=== PATIENT | male | born 1935 | race Caucasian/White ===

== ENCOUNTER → 2018-03-28 11:11 | Outpatient (CLI) | payer MEDICARE, OTHER, SELFPAY ==
[2016-11-03 09:34] VITALS: BMI 23.1
== END ==
PROVIDERS: Family Provider Family Medicine; PCP Family Medicine; Referring Provider Urology; Visit Provider Urology
DX: R97.20 Elevated prostate specific antigen [PSA] (principal)
CPT/HCPCS: 36415; 84153

== ENCOUNTER → 2020-04-19 16:26 | Outpatient (CLI) | payer MEDICARE, OTHER, SELFPAY ==
[2016-11-03 09:34] VITALS: BMI 23.1
== END ==
PROVIDERS: Referring Provider Nurse Practitioner Adult Health; Visit Provider Nurse Practitioner Adult Health
DX: R31.0 Gross hematuria (principal)
CPT/HCPCS: 87086

== ENCOUNTER 2020-04-30 09:03 | Inpatient (IN) | payer MEDICARE, OTHER, SELFPAY ==
--- NOTE | 2020-04-29 13:59 | PCM.HP.STD ---
Problem List (1) Gross hematuria Status: Acute History of Present Illness Date of Admission: 04/29/20 Chief Complaint: gross hematuria and bladder mass The patient is a 84 year old male came into the office with the onset of gross hematuria cystoscopy done demonstrated significant bleeding within the bladder and also bladder mass is to be admitted to the hospital for further management Past Medical History Allergies No Known Allergies Allergy (Verified 10/27/16 15:29) Home Medications: Ambulatory Orders Medication Instructions Recorded Finasteride [Proscar] 5 mg PO DAILY 10/27/16 Oxycodone HCl/Acetaminophen 1 - 2 tablet PO Q4H PRN PRN #20 11/03/16 [Percocet 5/325] tablet Surgical History: no surgical history Smoking Status: Never smoker Review of Systems Constitutional: Denies: Chills, Fever, Weight Change HEENT: Denies: Head Aches, Sinus Congestion, Sinus Drainage Cardiovascular: Denies: Chest Pain, Palpitations Respiratory: Denies: Cough, Shortness of breath at rest, Sputum production Gastrointestinal: Denies: Abdominal Pain, Nausea, Vomiting Genitourinary: Denies: Dysuria Musculoskeletal: Denies: Joint Pain, Joint Tenderness Skin: Denies: Rash, Wounds Neurological: Denies: Numbness, Tingling, Focal weakness Psychiatric: Denies: Anxiety, Depression, Homicidal Ideations, Suicidal Ideations Hematologic/ Lymphatic: Denies: Easy Bruising, Easy Bleeding VTE Information - Inpt Only VTE Present on Admission: No - Physical Exam General: Alert, Oriented x3, Cooperative HEENT: Atraumatic, PERRLA, EOMI, Normocephalic Neck: Supple, No JVD, Negative Carotid Bruits Lungs: Clear to auscultation, Normal air movement Cardiovascular: Regular rate, No murmurs Abdomen: Bowel Sounds Present, Soft, Non Tender Extremities: No edema, Capillary Refill Less than 3 Seconds Skin: No rashes, No breakdown Musculoskeletal: No Tenderness to Palpation of Joints or Extremities Neurological: Cranial nerves II-XII grossly intact Psych/Mental Status: Normal Affect, Appropriate Assessment/Plan All Active Problems Gross hematuria (Acute) Right inguinal hernia (Acute) plan to proceed with a transurethral resection of a large bladder tumor, possible TURP, and prostate biopsy.
--- NOTE | 2020-04-29 14:16 | PCS.PANDOC ---
PANDEMIC DOCUMENTATION INITIATED: Date: 04/29/2020 Time: 1410
[2020-04-29 14:19] VITALS: BMI 23.1
[2020-04-29 14:25] VITALS: BP 137/69; PULSE 98; RESP 16; TEMP 36.7; O2SAT 98
[2020-04-29 14:32] VITALS: BMI 23.1
[2020-04-29] MEDS: 0.9% Normal Saline 1,000 ML 75 ML IV (14:52)
--- NOTE | 2020-04-29 15:12 | EKG12_ITS ---
Test Reason : PRE OP Blood Pressure : / mmHG Vent. Rate : 086 BPM Atrial Rate : 086 BPM P-R Int : 214 ms QRS Dur : 098 ms QT Int : 348 ms P-R-T Axes : 080 079 056 degrees QTc Int : 416 ms Sinus rhythm with 1st degree A-V block with Premature atrial complexes Otherwise normal ECG Confirmed by ANDI OCONNELL, NEIDA ([id number]), editor managing director SANGEETA MALCOLM ([id number]) on 05/03/2020 9:56:27 AM Referred By: Elton Simpson Confirmed By:NEIDA ESCAMILLA MD
[2020-04-29] MEDS: Cefazolin 1 GM/50 ML BAG IV ×2 (16:07→21:30)
[2020-04-29 20:07] VITALS: BP 126/60; PULSE 95; RESP 16; TEMP 36.7; O2SAT 95
[2020-04-30] VITALS (13 sets, daily range): BP systolic 111–184; BP diastolic 50–94; PULSE 71–99; RESP 16–18; TEMP 36.1–36.6; O2SAT 96–100; BMI 23.1
--- NOTE | 2020-04-30 | BLB_PTH ---
PATIENT: RICHARD PEREZ LOC: MS3 U#:[id number] AGE/SX: 84/M ROOM: [facility] [place] RE04/30/[address]: Dr. Elton Simpson MD : 1935 BED: 1 DIS: 05/01/2020 SPEC #: [id number] RECD: 04/30/20 13:37 STATUS: DIANA REFernando #: [id number] LEONEL: 04/30/20 00:[address]: Elton Simpson DEPT: SURGICAL PATHOLOGY RECD BY: Rafat Ochoa ENTERED: 05/03/20 08:09 SP TYPE: TURB OTHR DR: Dr. Kaleb Ochoa MD Tissues: A - Urinary bladder, NOS B - Prostate, NOS C - PROSTATE BIOPSY Procedures: Surgery Specimen Level IV Comments: Sent 06/10/20 via [employer] to [employer] for PD-L1. Delayed in transit. Second block sent 06/30/20 and resulted 07/02/20. Original block finally arrived 07/02/20 and was canceled. HEADER OPERATION: TURP with [employer], TURBT, prostate biopsy PRE-OP DIAGNOSIS: Gross hematuria, malignant neoplasm of prostate; elevated PSA TISSUE SUBMITTED: A - Resection of mass from bladder, B - Prostate tissue, C - Prostate biopsy MICROSCOPIC DIAGNOSIS A. Urinary bladder mass, transurethral resection: Invasive high-grade urothelial carcinoma. See cancer checklist below. See comment. B. Prostate tissue, transurethral resection: Prostate tissue with benign nodular hyperplasia, glandular and stromal types. Fragments of urothelium and smooth muscle tissue with invasive poorly differentiated urothelial carcinoma. See comment. C. Prostate, needle core biopsy: Mild chronic inflammation. AM:alaina 05/04/2020 COMMENT A. BLADDER CANCER (TUR) SUMMARY Procedure: Transurethral resection of bladder (TURBT) Tumor site: Not specified Histologic type: Papillary urothelial carcinoma Histologic grade: WHO high grade (3/3) Tumor configuration: Non-papillary Muscularis propria invasion: Focally present Lymphvascular invasion: Not identified Tumor extension: Tumor extends into lamina propria and focally involving muscularis propria. Additional pathologic findings: Chronic inflammation. The above summary is in compliance with [employer] of [place] [employer] (CAP) Cancer Protocols Checklist and [place] Joint Committee on Cancer (AJCC), Staging Manual, 8th Ed. A & B. Immunohistochemistry ([id number]) supports the above diagnosis. This case was reviewed and diagnosis discussed with Dr. Yoon on 05/20/20 at 11:40 a.m. Case has been reviewed in consultation with Dr. Bey who concurs with the above diagnosis. IDC:SJ MICROSCOPIC DESCRIPTION Slides are reviewed. GROSS DESCRIPTION A - Received in fixative is one container labeled with the patient's name and designated resection of mass from bladder. The specimen consists of multiple irregular fragments of light hirsch soft tissue that in aggregate measure 5 x 3 x 0.3 cm. The specimen is totally submitted in two cassettes. B - Received is one container labeled with the patient's name and designated prostate tissue. The specimen consists of multiple irregular fragments of pink-hirsch, rubbery, soft tissue that in aggregate weigh 10.4 gm and measure in aggregate 6 x 6 x 2 cm. The entire specimen is submitted in ten cassettes. C - Received in fixative is one container labeled with the patient's name and designated prostate. The specimen consists of two elongated fragments of light hirsch-white soft tissue measuring 1 and 2 cm in length and 0.1 cm in diameter. The specimen is totally submitted in one cassette. / SJ:rg 05/03/20 TC:0 CPT: 02320 x3 ADDENDUM ADDENDUM ADDENDUM ADDENDUM ADDENDUM ADDENDUM ADDENDUM ADDENDUM ADDENDUM ADDENDUM 07/07/2020 09:46 ADDENDUM 07/07/2020 09:46 ADDENDUM 07/07/2020 09:46 ADDENDUM 07/07/2020 09:46 ADDENDUM 07/07/2020 09:46 PD-L1 (KEYTRUDA) IMMUNOHISTOCHEMICAL ANALYSIS FROM [employer] Block A1 RESULTS: Tumor proportion score: 10-15 (CPS>=10 / Expressed) Block A2 RESULTS: Tumor proportion score: 0 (CPS<10 / No PD-L1 Expression) Please see complete report in e-chart or EMR
--- NOTE | 2020-04-30 | IMM_PTH ---
PATIENT: RICHARD PEREZ LOC: MS3 U#:[id number] AGE/SX: 84/M ROOM: [facility] [place] RE04/30/[address]: Dr. Elton Simpson MD : 1935 BED: 1 DIS: 05/01/2020 SPEC #: [id number] RECD: 05/04/20 12:43 STATUS: DIANA REQ #: [id number] LEONEL: 04/30/20 00:[address]: Elton Simpson DEPT: IMMUNOHISTOCHEMISTRY RECD BY: Hannah Wilkerson ENTERED: 05/04/20 12:44 SP TYPE: IMMUNO OTHR DR: Dr. Kaleb Ochoa MD Tissues: A - Urinary bladder, NOS B - Prostate, NOS Procedures: CK20 (add) CK7 (add) CK8 (add) Pankeratin (initial) CD44 (add) PSAP (add) PHYSICIAN & INSTITUTION [place] [id number] SPECIMEN INFORMATION: Tissue Source: A - Resection of bladder mass, B - Prostate tissue Clinical Info: Gross hematuria, malignant neoplasm of prostate, elevated PSA Specimen Number: [id number] A2 & B8 CPT code: 72003 x2, 42486 x10 METHODOLOGY: Deparaffinized sections of prefer/formalin-fixed tissue or PAP/DQ stained slides are incubated with monoclonal/polyclonal antibodies/oligonucleotide probes. Localization is made via biotin free immunoperoxidase method. Appropriate controls are performed and reacted as expected. Results on target cell population are indicated in the following table: RESULTS: ANTIBODY / CLONE RESULT Block A2 AE1-3 (AE1/AE3/PCK26) positive CK7 (OV-TL12/30) positive CK8 (35drgxM78) positive CK20 (KS20.8) positive PSAP (PASE/4LJ) negative anti-CD44 (SP37) positive, focal Block B8 AE1-3 (AE1/AE3/PCK26) positive CK7 (OV-TL12/30) positive CK8 (71jxpwL15) positive CK20 (KS20.8) positive, focal, dim PSAP (PASE/4LJ) negative anti-CD44 (SP37) positive, focal These tests were developed and their performance characteristics determined by [facility]. They may not have been cleared or approved by the U.S. Food and Drug Administration. The FDA has determined that such clearance or approval is not necessary. The above immunohistochemical/dualISH markers are ordered and reviewed by the Pathologist. INTERPRETATION: A. Urinary bladder mass, transurethral resection: Consistent with urothelial carcinoma. B. Prostate tissue, transurethral resection: Consistent with urothelial carcinoma. AM:alaina 05/05/2020 Case has been reviewed in consultation with Dr. Bey who concurs with the above diagnosis. IDC:SJ
[2020-04-30] MEDS: Acetaminophen 325 MG Tablet PO (02:19)
[2020-04-30] MEDS: 0.9% Normal Saline 1,000 ML 75 ML IV ×2 (05:28→14:04)
[2020-04-30 05:57] LABS: Hematocrit 37.5 % (40-54); Hemoglobin 12.7 g/dL (13.0-16.5); Mean Corp Hgb Conc 33.9 g/dL (32-36); Mean Corpuscular Hgb 30.9 pg (27.0-32.0); Mean Corpuscular Volume 91.2 fL (80-94); Mean Platelet Vol. 9.8 fl (6.2-12.0); Platelet Count 253 K/mm3 (150-450); RBC Distribution Width CV 13.1 % (11.6-14.6); RBC Distribution Width SD 43.6 fl (35.1-43.9); Red Blood Count 4.11 M/mm3 (4.6-6.2); White Blood Count 6.4 K/mm3 (4.4-11.0)
[2020-04-30 06:22] LABS: Anion Gap 4 (5-15); BUN 14 mg/dL (7-18); BUN/Creat Ratio 15.2 RATIO (10-20); Chloride 107 mmol/L (98-107); Creatinine, Serum 0.92 mg/dL (0.70-1.30); EST Glomerular Filtration Rate 83 mL/min (>60); Est Glom Filt Rate - Afr Amer 100 mL/min (>60); Estimated Creatinine Clearance 58.86 ml/min; Glucose 105 mg/dL (74-106); Potassium 4.2 mmol/L (3.5-5.1); Sodium Level 139 mmol/L (136-145)
[2020-04-30 07:14] LABS: Hemoglobin A1c 6.1 % (3.8-5.6)
--- NOTE | 2020-04-30 12:07 | PCM.DC.URO ---
Discharge Diet: Light diet - advance as tolerated Discharge Activity: Return to Normal Activity, May not drive while taking narcotic pain medications. Call your doctor if your incision/area has: Sudden Increased Bleeding, Increased Pain/ Swelling, Increased Redness, Foul Smelling Discharge, Swelling at the incision site Call your doctor if you observe: Fever of 101 or Higher Suture Line Care: Avoid Pulling/Pushing, Avoid Pinching/Bending Catheter: Bryant to leg bag, Bryant to large bag Drain: [place] Allergies/Adverse Reactions: Allergies No Known Allergies Allergy (Verified 10/27/16 15:29) Medications to take at Discharge Ciprofloxacin [Cipro] 500 mg PO BID #14 tab 04/30/20 Hydrocodone/Acetaminophen [[place] 5-325 Tablet] 1 each PO Q6H PRN PRN 7 Days #10 tablet 04/30/20 The following prescriptions were given: Ciprofloxacin [Cipro] 500 mg PO BID #14 tab Transmission Status: Pending to [facility] Hydrocodone/Acetaminophen [[place] 5-325 Tablet] 1 each PO Q6H PRN PRN 7 Days #10 tablet PRN Reason: Pain 1-10 Or Fever Transmission Status: Sent to [facility] Primary Care Physician: Kaleb Ochoa MD [Primary Care Provider] - Test Results: Test results from this visit will be discussed in further detail at your follow-up appointment, if applicable. Please Follow Up With: Elton Simpson MD When: please call to make an appointment.
--- NOTE | 2020-04-30 12:08 | PCM.OPRPT ---
Problem List (1) Gross hematuria Status: Acute Report of Operation Date of Procedure: 04/30/20 Pre-Operative Diagnosis: Large bladder mass, BPH with obstruction, gross hematuria, history of prostate cancer Post-Operative Diagnosis: Same Surgery/Procedure Performed:: Multiple procedures. #1 transurethral section of the prostate. #2 transurethral section of large bladder tumor on the left lateral wall 5 cm. #3 transrectal biopsy the prostate Description of Surgical Findings:: In the preoperative setting I discussed with the patient how the surgery would be done with expect afterwards. We discussed how a prostate resection is done and we discussed the risk of the surgery including, bleeding, infection, retrograde ejaculation, changes with ejaculation or intercourse,. We discussed the possibility that the resection of the prostate may not alleviate his urinary symptoms. We discussed the small risk of developing scar tissue along the urethral channel and strictures. We also discussed the chance of the prostate could grow back and he may need further surgery or treatment in the future for prostate problems. Patient was taken back to the operating room, timeout procedure was performed, he was identified and marked and placed on the operating room table. He underwent general anesthesia. He was placed in dorsolithotomy position. Penis and testicles were prepped and draped in usual sterile fashion. I went into the bladder with a 30 degree lens and a cystoscope and identified the tumor the tumor was about 5-6 centimeters in size and occupying mostly the left lateral wall of the bladder. The right and left ureteral orifice were identified. The tumor was not involved in the ureteral orifices. I then placed the resectoscope and the bladder and resected the entire tumor down to the muscle on the left side. And then cauterized the resection base to obtained hemostasis. I then went into the bladder using the visual obturator with a resectoscope. Once inside the bladder identified the right and left ureteral orifice. I then identified the prostate and the anatomy of the prostate. I marked out the area of the sphincter and the verumontanum was identified. I then proceeded with the prostate resection first resected the median lobe. And then resected the right lobe of the prostate. Then to resect the left lobe of the prostate. I then resected the apical tissue of the prostate. Made sure that there was no injury to the sphincter or the verumontanum was still intact. At the end of the resection all the chips were Ellik out of the bladder. I then identified the left and right ureteral orifice and these were confirmed to be in good position and effluxing and not injured. The resectoscope was removed, a 22 Bulgarian catheter was placed into the bladder on continuous irrigation. Then finally I double gloved and used a guide through the glove and I performed a rectal exam and via the guide I did prostate biopsy transrectal and I obtained several specimens for the prostate again because of the history of prostate cancer to restage the patient. At the end of the procedure patient's anesthetic was reversed he was taken back to the PACU in good condition and he will probably need to go home with a catheter since it was a very large resection of the bladder tumor and a TURP. Drains: 22fr 3 way - Admit VTE Documentation VTE Present on Admission: No VTE Mechan Device Prophylaxis: SCD's
[2020-04-30] MEDS: Lactated Ringers 1,000 ML 100 ML IV (12:58)
--- NOTE | 2020-04-30 15:45 | CASEMGMT ---
RN CM EDGE BEADER CM to room to meet with patient for initial transition planning/care coordination assessment. RN JOON introduced self and role at [facility]. Pt voices understanding and consents to assessment at this time. Pt resting in bed in no distress at this time. DaughterViry, @ bedside. Pt is A/O at this time and answers all questions appropriately. Care providers, pharmacy, and demographics verified/updated at this time. PCP: Dr Kaleb Ochoa Specialists: Dr Griffin--news technical director @ [facility] Preferred Pharmacy: [facility] Retail Insurance: [employer] Prescription Benefit: None Living Will/HPOA: Has both LW and Healthcare POA, who is his , Promise. DaughterViry, is 1st alternative. LNOK: , Promise. 3 adult children Living Arrangements: Lives w/his in condo. No steps to enter. Independent. Often works @ a [employer] 8-10 hrs/day. Transportation: Pt states drives self and states no transportation concerns at this time. DaughterViry, will take him home @ d/c. DME: Denies using any DME and denies needs. HHC/SNF: No history of either. Denies need for HHC. Pt wishes to return home and states has no concerns with going home at time of discharge. Pt will most likely d/c home with F/C. He and dtr, Viry, state they feel pt will be able to manage F/C at d/c. They were made aware nursing would do teaching w/them prior to d/c. Viry, is a nurse, and lives out of state. She is able to stay with pt and assist as needed. Pt/Viry voice no further concerns/needs at this time. Advised them to ask for CM if any further questions/concerns/needs arise. Voices understanding. PLAN: Home w/family support and discharge plans in place. Lisbet GOFF RN, CM
[2020-04-30] MEDS: Docusate Sodium 100 MG Capsule PO (22:08)
[2020-05-01] MEDS: 0.9% Normal Saline 1,000 ML 75 ML IV (01:02)
[2020-05-01 02:29] VITALS: BP 101/54; PULSE 85; RESP 18; TEMP 36.9; O2SAT 99
[2020-05-01 02:33] VITALS: BMI 23.1
[2020-05-01 06:14] VITALS: BMI 23.1
[2020-05-01 06:46] LABS: Hematocrit 37.7 % (40-54); Hemoglobin 12.5 g/dL (13.0-16.5); Mean Corp Hgb Conc 33.2 g/dL (32-36); Mean Corpuscular Hgb 30.5 pg (27.0-32.0); Platelet Count 301 K/mm3 (150-450); RBC Distribution Width CV 13.3 % (11.6-14.6); RBC Distribution Width SD 44.8 fl (35.1-43.9); White Blood Count 12.4 K/mm3 (4.4-11.0)
[2020-05-01 07:08] LABS: Anion Gap 6 (5-15); BUN 15 mg/dL (7-18); BUN/Creat Ratio 15.2 RATIO (10-20); Calcium,Total 7.7 mg/dL (8.5-10.1); Chloride 105 mmol/L (98-107); Creatinine, Serum 0.99 mg/dL (0.70-1.30); EST Glomerular Filtration Rate 77 mL/min (>60); Est Glom Filt Rate - Afr Amer 93 mL/min (>60); Glucose 108 mg/dL (74-106); Potassium 3.8 mmol/L (3.5-5.1); Sodium Level 139 mmol/L (136-145)
[2020-05-01 08:29] VITALS: BP 141/79; PULSE 99; RESP 18; TEMP 36.8; O2SAT 99
[2020-05-01] MEDS: Docusate Sodium 100 MG Capsule PO (09:00)
[2020-05-01] MEDS: Pantoprazole Sodium 40 MG Tablet PO (09:00)
[2020-05-01 09:50] VITALS: BMI 23.1
--- NOTE | 2020-05-01 12:30 | PCM.DC.SUM ---
Discharge Date and Diagnosis - Problem List Patient Problems: Active and Suspected Problems Gross hematuria (Acute) Date of Admission: 04/29/20 Date of Discharge: 05/01/20 - Primary Discharge Diagnosis Acute Problems: Active Problems Gross hematuria (Acute) Hospital Course and Treatment Operations: TURP Summary of Care Provided: The patient is a 84 year old male with a history of low-grade prostate cancer presented with gross hematuria found to have a bladder mass underwent a resection of this bladder mass and also a TURP for obstruction there is a deep resection so he will need to go home with a catheter today he will follow-up in the office later this week to remove the catheter. He was given prescriptions for antibiotics and pain medicine for home. Patient Problems: Active and Suspected Problems Gross hematuria (Acute) - Physical Exam Vitals/I&O's: Vital Signs Temp Pulse Resp BP Pulse Ox 98.3 F 99 18 141/79 H 99 05/01/20 08:29 05/01/20 08:29 05/01/20 08:29 05/01/20 08:29 05/01/20 08:29 Oxygen Delivery Method Room Air Weight: 68.81 kg Body Mass Index (BMI) 23.1 Intake and Output for Last 24 Hours 04/29/20 04/30/20 05/01/20 23:59 23:59 23:59 Intake Total 597.5 / 947.5 2669.17 / 2669.17 2757.5 / 2757.5 Output Total 2875 / 2875 1200 / 1200 Balance 597.5 / 947.5 -205.83 / -205.83 1557.5 / 1557.5 General: Alert, Oriented x3, Cooperative HEENT: Atraumatic, PERRLA, EOMI, Normocephalic Neck: Supple, No JVD, Negative Carotid Bruits Lungs: Clear to auscultation, Normal air movement Cardiovascular: Regular rate, No murmurs Abdomen: Bowel Sounds Present, Soft, Non Tender Extremities: No edema, Capillary Refill Less than 3 Seconds Skin: No rashes, No breakdown Musculoskeletal: No Tenderness to Palpation of Joints or Extremities Neurological: Cranial nerves II-XII grossly intact Psych/Mental Status: Normal Affect, Appropriate Microbiology Past 72 Hours 04/30/20 07:30 Mucosa - Nose SARS-CoV-2 Antigen (Rapid) - Final Laboratory Results 05/01/20 05:23: WBC 12.4 H, RBC 4.10 L, Hgb 12.5 L, Hct 37.7 L, MCV 92.0, MCH 30.5, MCHC 33.2, RDW Std Deviation 44.8 H, RDW Coeff of Wilfredo 13.3, Plt Count 301, MPV 10.0 05/01/20 05:23: Sodium 139, Potassium 3.8, Chloride 105, Carbon Dioxide 28.0, Anion Gap 6, BUN 15, Creatinine 0.99, Estim Creat Clear Calc 54.70, Est GFR (MDRD) Af Amer 93, Est GFR (MDRD) Non-Af 77, BUN/Creatinine Ratio 15.2, Glucose 108 H, Calcium 7.7 L Current Medications Acetaminophen (Acetaminophen 325 Mg Tablet) 325 - 650 mg PO Q4H PRN PRN PRN Reason: pain score 1-10/fever/headache Last Admin: 04/30/20 02:19 Dose: 650 mg Documented by: Al Hydroxide/Mg Hydroxide (Mag Hydrox/Al Hydrox/Simeth 30 Ml Udc) 30 ml PO Q4H PRN PRN PRN Reason: Heartburn Docusate Sodium (Docusate Sodium 100 Mg Capsule) 100 mg PO BID [facility] Last Admin: 05/01/20 09:00 Dose: 100 mg Documented by: Ibuprofen (Ibuprofen 600 Mg Tablet) 600 mg PO Q6H PRN PRN PRN Reason: Pain Score 1-10 Ondansetron HCl (Ondansetron 4 Mg/2 Ml Vial) 4 mg IV Q6H PRN PRN PRN Reason: Nausea Oxycodone HCl (Oxycodone 5 Mg Tablet) 5 mg PO Q4H PRN PRN PRN Reason: Pain Score 1-10 Pantoprazole Sodium (Pantoprazole Sodium 40 Mg Tablet) 40 mg PO DAILY [facility] Last Admin: 05/01/20 09:00 Dose: 40 mg Documented by: Sodium Chloride (0.9% Saline Lock 10 Ml Syringe) 10 - 40 ml IV UD PRN PRN Reason: SALINE FLUSH Discharge Diet: Light diet - advance as tolerated Discharge Activity: Return to Normal Activity, May not drive while taking narcotic pain medications. Call your doctor if your incision/area has: Sudden Increased Bleeding, Increased Pain/ Swelling, Increased Redness, Foul Smelling Discharge, Swelling at the incision site Call your doctor if you observe: Fever of 101 or Higher Suture Line Care: Avoid Pulling/Pushing, Avoid Pinching/Bending Catheter: Bryant to leg bag, Bryant to large bag Drain: [place] Home Medications: Medications to take at Discharge Ciprofloxacin [Cipro] 500 mg PO BID #14 tab 04/30/20 Hydrocodone/Acetaminophen [[place] 5-325 Tablet] 1 ea PO Q6H PRN PRN 7 Days #10 tab 04/30/20 Following Prescriptions Were Given to Patient: Ciprofloxacin [Cipro] 500 mg PO BID #14 tab Transmission Status: Received by [facility] Hydrocodone/Acetaminophen [[place] 5-325 Tablet] 1 ea PO Q6H PRN PRN 7 Days #10 tab PRN Reason: Pain 1-10 Or Fever Transmission Status: Received by [facility] Primary Care Physician: Kaleb Ochoa MD [Primary Care Provider] - Please Follow Up With: Elton Simpson MD When: please call to make an appointment. Medical Necessity - Tobacco Use Smoking Status: Never smoker Tobacco Use: Non-smoker Meaningful Use Info Meaningful Use Diagnoses (Choose all that apply): None applicable
[2020-05-01 13:33] VITALS: BP 138/66; PULSE 74; RESP 18; TEMP 36.7; O2SAT 98
== END 2020-05-01 13:55 | disposition home or self-care (01) | DRG 666 ==
LOC: SDC 09:43 → MS3 09:44
PROVIDERS: Anesthesiology; Admitting Provider Urology; PCP Family Medicine; Referring Provider Urology; Visit Provider Urology
PROC: 0TBB8ZZ Excision of Bladder, Via Natural or Artificial Opening Endoscopic (ICD-10-PCS; principal; 2020-04-30 11:00)
DX: C67.2 Malignant neoplasm of lateral wall of bladder (principal); N13.8 Other obstructive and reflux uropathy; C79.82 Secondary malignant neoplasm of genital organs; N40.1 Benign prostatic hyperplasia with lower urinary tract symptoms; R31.0 Gross hematuria; Z85.46 Personal history of malignant neoplasm of prostate; K40.90 Unilateral inguinal hernia, without obstruction or gangrene, not specified as recurrent
CPT/HCPCS: 36415; 80048; 83036; 85027; 87426; 88305; 88341; 88342; 93005; J7030; J7120; J2405; J3490

== ENCOUNTER 2020-05-05 16:03 | Emergency (ER) | payer MEDICARE, OTHER, SELFPAY ==
[2020-04-30 10:05] VITALS: BMI 23.1
[2020-05-05 16:05] VITALS: BP 163/76; PULSE 110; RESP 16; TEMP 36.3; O2SAT 99; BMI 22.1
--- NOTE | 2020-05-05 16:17 | ED.VISSUMM ---
- ER Visit Summary Date of Service: 05/05/20 Chief Complaint: [Bryant catheter problem] History of Present Illness: The patient is a 84 M [does the emergency department with concerns about a clogged Bryant catheter. Patient states that he had surgery 5 days ago to remove a bladder mass and has had the catheter since that time. Last night started having some discomfort to the tip of the penis where the catheter inserts and he had urine leaking around the catheter itself. Patient is scheduled to see his urologist tomorrow however he was instructed to come to the ER to evaluate the catheter. He denies any fevers. He is currently on Cipro. He otherwise has no significant medical history. The discomfort is currently minimal.] Physical Examination: [HEENT-PERRLA, EOMI. Cranial nerves II through XII grossly intact. TMs clear. Mucous membranes moist. No adenopathy. Cardiovascular-regular rate and rhythm without murmur or ectopy Lungs-clear to auscultation, chest wall stable without crepitus or subcu emphysema Abdomen-normoactive bowel sounds, soft, nontender, no rebound or rigidity, no peritoneal signs. exam-patient has a Bryant catheter that appears to be in place with urine in the tubing noted without blood. Extremities-intact ?4, normal range of motion, normal pulses, atraumatic] Test Results: [None indicated ] Emergency Department Course and Treatment: [Patient had his three-way Bryant catheter irrigated after obtaining bladder scan that only showed 50 cc of urine. The catheter was irrigated without difficulty and what was put into the bladder return through the Bryant catheter. I attempted to contact to discuss case as patient has an appointment with him tomorrow. The patient does not want to wait any longer as the call was not returned immediately.] Treatment Plan: [Patient will follow up with his urologist tomorrow] Disposition: [Discharged home in stable condition] Impression: [Bryant catheter irrigation] This note was generated with [employer] software. It may contain incorrect words, spelling, and punctuation that were not noted in review of the chart prior to signing ED Disposition - Plan for ED Patient: Referrals: Kaleb Ochoa MD [Primary Care Provider] -
--- NOTE | 2020-05-05 18:16 | ED.DEP ---
ED Disposition - Plan for ED Patient: Instructions: Caring for Your Indwelling Urinary Catheter, ED Bryant Catheter, Care Referrals: Kaleb Ochoa MD [Primary Care Provider] - Elton Simpson MD [STAFF PHYSICIAN] -
[2020-05-05 18:32] VITALS: RESP 17
== END 2020-05-05 18:34 | disposition home or self-care (01) ==
LOC: ED 16:13
PROVIDERS: Emergency Provider Emergency Medicine; PCP Family Medicine
DX: T83.091A Other mechanical complication of indwelling urethral catheter, initial encounter (principal)
CPT/HCPCS: 99282

== ENCOUNTER → 2020-05-11 14:54 | Outpatient (CLI) | payer MEDICARE, OTHER, SELFPAY ==
[2020-05-05 16:05] VITALS: BMI 22.1
--- NOTE | 2020-05-11 14:00 | PET_ITS ---
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 COMPARISON EXAMINATION: None available INDEX LESION SIZE SUV INTERPRETATION Lower pelvis thickening urinary bladder wall 11.8-mm (frame 56) 3.3 Fulfills quantitative criteria for viable neoplasm NON-INDEX LESION SIZE SUV INTERPRETATION Mediastinum, bilateral thoracic perihilum 28.8-mm (largest) (frame 186) 4.1 (max) Low likelihood of viable neoplasm secondary to presence of calcification as defined TECHNIQUE: Following the intravenous administration of 13.15 mCi of F-18 deoxyglucose via the left antecubital fossa, multiplanar image acquisitions of the neck, chest, abdomen and pelvis to level of mid thigh, obtained at one hour post radiopharmaceutical administration contemporaneously interpreted with the current CT of the neck, chest, abdomen and pelvis to level of mid thigh, dated 05/11/20 via coregistration reveal: SERUM GLUCOSE LEVEL: 100 mg/dl. HEIGHT: 68 inches. WEIGHT: 145 lbs. FINDINGS: 1. There is an asymmetric increase in glucose metabolism manifest in the lower pelvis associated with the thickening of the urinary bladder wall to the left of the midline anteriorly. The calculated maximal standard uptake value is 3.3. The maximal axial diameter of the metabolic abnormality is approximately 11.8-mm. 2. An increase in glucose metabolism is identified in the carinal level mediastinum and bilateral thoracic perihilum corresponding to partially calcified soft tissue on review of CT of the chest dated 05/11/20. The calculated maximal standard uptake value is 4.1. The maximal axial diameter of the largest individual metabolic, morphologic abnormality on review of CT of the chest dated 05/11/20 is 28.8-mm (AP). 3. Normal physiologic distribution of the radiopharmaceutical is apparent in the hepatic (2.7) and splenic parenchyma, both renal units, bladder and visualized intestinal tract. The visualized portion of the cerebral cortex demonstrate symmetric and preserved glucose metabolism. Diffuse radiopharmaceutical concentration is noted in all four quadrants of the abdomen and pelvis. Pertinent CT findings are as follows: CHEST: Ventricular pacemaker placement is defined. There is atherosclerotic calcification defined in the thoracic aorta without evidence of dilatation-aneurysm formation. Coronary arterial calcification is observed. Bilateral axillary soft tissue densities with fatty hilus are ametabolic. There are no parenchymal densities-nodules defined in the right and left hemithorax with discernible increased FDG concentration. A rounded calcified density defined in the left lower medial lung-left lower lobe is non-glucose avid. ABDOMEN AND PELVIS: There is atherosclerotic calcification defined in the abdominal aorta without evidence of dilatation-aneurysm formation. Pelvic arterial calcification is observed. Calcified granuloma formation is noted within the splenic parenchyma. Dystrophic calcification is manifest within the base of a prominent size prostate gland without evidence of increased tracer uptake. There is thickening of the urinary bladder wall without evidence of increased fluorine labeled glucose metabolism. Bilateral inguinal subcentimeter soft tissue densities are non-glucose avid. A small fat containing left inguinal hernia is observed. SKELETAL: Degenerative changes are noted in the cervical, thoracic and lumbar spine with no evidence of increased FDG uptake. There are no sclerotic, mixed sclerotic-lytic and/or primarily lytic changes noted on review of the appendicular, axial skeletal structures. PET/PET/CT Tumor Base -Thigh Init IMPRESSION: 1. Increased FDG concentration observed in the lower pelvis associated with urinary bladder wall thickening to the left of the midline anteriorly fulfills quantitative criteria for viable neoplasm. 2. Enhanced tracer uptake observed in the mediastinum and bilateral thoracic perihilum corresponding to partially calcified soft tissue is consistent with a low likelihood of malignant transformation. Electronic Signature Bryan Lopez D.O. Accurate Quantification of SUVs for this report are calculated using the exclusive [employer]? Technology.??Exclusive [place] Patent [employer]? Technology ([place] Patent No. [id number]). Electronically Signed: Bryan Lopez DO at 21:44 EST Tel , Service support ,
== END ==
PROVIDERS: PCP Family Medicine; Referring Provider Urology; Visit Provider Urology
DX: C67.2 Malignant neoplasm of lateral wall of bladder (principal)
CPT/HCPCS: 78815; A9552

== ENCOUNTER 2020-05-28 11:22 | Outpatient (RCR) | payer MEDICARE, OTHER, SELFPAY ==
[2020-05-18 10:01] VITALS: BMI 23.1
[2020-05-20 13:50] VITALS: BMI 23.4
== END 2020-05-28 23:59 ==
LOC: IMMUN 11:22
PROVIDERS: PCP Family Medicine; Referring Provider Family Medicine; Visit Provider Family Medicine
DX: Z23 Encounter for immunization (principal)
CPT/HCPCS: 0011A; 0012A